=== PATIENT | female | born 1995 | race Caucasian/White ===

== ENCOUNTER 2017-01-11 17:22 | Emergency (ER) | payer OTHER ==
[2017-01-11] MEDS ORDERED: NORMAL SALINE 1000 ML 1,000 ML IV PRN (17:44)
[2017-01-11] MEDS ORDERED: ONDANSETRON 4 MG TAB.RAPDIS SL ONE (17:44)
--- NOTE | 2017-01-11 17:45 | ER Document Report ---
ED Medical Screen (RME) - General Chief Complaint: Vomiting Stated Complaint: VOMITING/WEAKNESS Time Seen by Provider: 01/11/17 17:44 Mode of Arrival: Ambulatory Information source: Patient TRAVEL OUTSIDE OF THE [place] IN LAST 30 DAYS: No - HPI Patient complains to provider of: Nausea and vomiting Onset: This morning Onset/Duration: Persistent Quality of pain: Achy, Cramping Severity: Mild Associated Symptoms: Nausea, Vomiting Exacerbated by: Denies Relieved by: Denies Notes: 01/11/17 17:45 Patient is a 21-year-old female who presents to the emergency room complaining of nausea and vomiting with epigastric abdominal pain that started around 7:00 this morning, she denies any sick contacts, no fevers, denies being - Related Data Allergies/Adverse Reactions: No Known Allergies Allergy (Verified 01/11/17 17:25) Past Medical History - Social History Chew tobacco use (# tins/day): No Frequency of alcohol use: None Drug Abuse: None Renal/ Medical History: Denies: Hx Peritoneal Dialysis Past Surgical History: Reports: Hx Cholecystectomy, Hx Oral Surgery - jaw Physical Exam - Vital signs Vitals: Temp Pulse Resp BP Pulse Ox 98 F 70 16 148/100 H 99 01/11/17 17:25 01/11/17 17:25 01/11/17 17:25 01/11/17 17:25 01/11/17 17:25 Course - Vital Signs Vital signs: Temp Pulse Resp BP Pulse Ox 98 F 66 18 137/95 H 98 01/11/17 17:25 01/11/17 17:41 01/11/17 17:41 01/11/17 17:41 01/11/17 17:41
[2017-01-11 18:53] LABS: HEMATOCRIT 43.1 % (36.0-47.0); HEMOGLOBIN 14.5 g/dL (12.0-15.5); HGB HCT DIFFERENCE 0.4; MEAN CORPUSCULAR HEMOGLOBIN 29.3 pg (27.0-33.4); MEAN CORPUSCULAR HGB CONC 33.6 g/dL (32.0-36.0); MEAN CORPUSCULAR VOLUME 87 fl (80-97); RED BLOOD COUNT 4.94 10^6/uL (3.72-5.28); RED CELL DISTRIBUTION WIDTH 13.2 % (11.5-14.0); WHITE BLOOD COUNT 10.6 10^3/uL (4.0-10.5)
[2017-01-11 19:10] LABS: ALANINE AMINOTRANSFERASE 23 U/L (5-35); ALBUMIN 4.9 g/dL (3.7-5.6); ALKALINE PHOSPHATASE 94 U/L (50-135); ANION GAP 18 (5-19); ASPARTATE AMINO TRANSFERASE 26 U/L (5-30); BILIRUBIN,DIRECT 0.4 mg/dL (0.0-0.4); BILIRUBIN,TOTAL 0.8 mg/dL (0.2-1.3); BLOOD UREA NITROGEN 9 mg/dL (7-20); CALCIUM 10.6 mg/dL (8.4-10.2); CARBON DIOXIDE 17 mmol/L (22-30); CHLORIDE 106 mmol/L (98-107); CREATININE RESULT 0.65 mg/dL (0.52-1.25); GLUCOSE 163 mg/dL (75-110); LIPASE 65.5 U/L (23-300); POTASSIUM 4.6 mmol/L (3.6-5.0); SODIUM 140.9 mmol/L (137-145); TOTAL PROTEIN 8.3 g/dL (6.3-8.2)
[2017-01-11 19:23] LABS: BASOPHILS % (MANUAL) 0 % (0-2); EOSINOPHILS % (MANUAL) 0 % (0-6); LYMPHOCYTES % (MANUAL) 7 % (13-45); TOTAL CELLS COUNTED 100
[2017-01-11] MEDS ORDERED: NORMAL SALINE 1000 ML 1,000 ML IV ONE (19:23)
[2017-01-11 19:24] LABS: RBC MORPHOLOGY COMMENT NORMO-CYTIC/CHROMIC
[2017-01-11 20:04] LABS: APPEARANCE,URINE SLIGHTLY-CLOUDY; BILIRUBIN,URINE NEGATIVE (NEGATIVE); GLUCOSE, URINE 50 mg/dL (NEGATIVE); KETONES,URINE 80 mg/dL (NEGATIVE); LEUKOCYTE ESTERASE,URINE NEGATIVE (NEGATIVE); NITRITE,URINE NEGATIVE (NEGATIVE); PROTEIN,URINE 100 mg/dL (NEGATIVE); URINE SPECIFIC GRAVITY 1.028; UROBILINOGEN,URINE NEGATIVE mg/dL (<2.0)
[2017-01-11] MEDS ORDERED: DIPHENHYDRAMINE HCL 50 MG/ML VIAL IV ONE (20:22)
[2017-01-11] MEDS ORDERED: PROCHLORPERAZINE EDISYLATE INJ 10 MG/2 ML VIAL IV ONE (20:22)
[2017-01-11] MEDS ORDERED: ONDANSETRON ODT 4 MG TAB (6 TAB/DSPK) PO PRN (20:51)
--- NOTE | 2017-01-11 20:51 | ER Document Report ---
ED General - General Chief Complaint: Vomiting Stated Complaint: VOMITING/WEAKNESS Time Seen by Provider: 01/11/17 17:44 Mode of Arrival: Ambulatory Notes: Patient is a 21-year-old female without past medical history who presents with 12 hours of epigastric abdominal pain and vomiting. States that she woke up this morning with a sensation of nausea and has had multiple episodes of vomiting since that time. States after several episodes of vomiting she developed a dull, wall aching pain in her epigastrium. Nothing improves or worsens her symptoms. States she has had similar symptoms in the past secondary to anxiety but is uncertain if this is the cause today. She has not seen her primary care doctor regarding today's concerns. Notes that she continues to have bowel movements and passing flatus without difficulty. She does have a surgical history of a cholecystectomy. TRAVEL OUTSIDE OF THE [place] IN LAST 30 DAYS: No - Related Data Allergies/Adverse Reactions: No Known Allergies Allergy (Verified 01/11/17 17:25) Past Medical History - General Information source: Patient - Social History Smoking Status: Never Smoker Chew tobacco use (# tins/day): No Frequency of alcohol use: None Drug Abuse: None Lives with: Spouse/Significant other Family History: Reviewed & Not Pertinent Patient has suicidal ideation: No Patient has homicidal ideation: No Renal/ Medical History: Denies: Hx Peritoneal Dialysis Past Surgical History: Reports: Hx Cholecystectomy, Hx Oral Surgery - jaw Review of Systems - Review of Systems Notes: Constitutional: Negative for fever. HENT: Negative for sore throat. Eyes: Negative for visual changes. Cardiovascular: Negative for chest pain. Respiratory: Negative for shortness of breath. Gastrointestinal: Positive for abdominal pain, vomiting. Negative for diarrhea Genitourinary: Negative for dysuria. Musculoskeletal: Negative for back pain. Skin: Negative for rash. Neurological: Negative for headaches, weakness or numbness. 10 point ROS negative except as marked above and in HPI. Physical Exam - Vital signs Vitals: Temp Pulse Resp BP Pulse Ox 98 F 70 16 148/100 H 99 01/11/17 17:25 01/11/17 17:25 01/11/17 17:25 01/11/17 17:25 01/11/17 17:25 Interpretation: Hypertensive Notes: PHYSICAL EXAMINATION: GENERAL: Well-appearing, well-nourished and in no acute distress. HEAD: Atraumatic, normocephalic. EYES: Pupils equal round and reactive to light, extraocular movements intact, sclera anicteric, conjunctiva are normal. ENT: nares patent, oropharynx clear without exudates. Moderately dry mucous membranes. NECK: Normal range of motion, supple without lymphadenopathy LUNGS: Breath sounds clear to auscultation bilaterally and equal. No wheezes rales or rhonchi. HEART: Regular rate and rhythm without murmurs ABDOMEN: Soft, nontender, normoactive bowel sounds. No guarding, no rebound. No masses appreciated. EXTREMITIES: Normal range of motion, no pitting or edema. No cyanosis. NEUROLOGICAL: No focal neurological deficits. Moves all extremities spontaneously and on command. PSYCH: Normal mood, normal affect. SKIN: Warm, Dry, normal turgor, no rashes or lesions noted. Course - Re-evaluation Re-evalutation: 01/11/17 20:49 Presentation of an overall well-appearing patient in no acute distress with complaints of nausea, vomiting. Patient has no abdominal tenderness on exam and specifically no tenderness in the RLQ, LLQ, RUQ. Overall well hydrated on exam. Able to tolerate oral intake here in the emergency department. Low clinical suspicion for any acute life-threatening etiology based on exam and history including acute cholecystitis, SBO, appendicitis, nephrolithiasis, or pylonephritis. CMP without evidence of acute hepatitis or significant dehydration. The exact etiology of this episodic vomiting is unclear at this time but could be related to either a viral or food bourne illness vs gastritis. At this time will discharge with return precautions and follow-up recommendations. Verbal discharge instructions given a the bedside and opportunity for questions given. Medication warnings reviewed. Patient is in agreement with this plan and has verbalized understanding of return precautions and the need for primary care follow-up in the next 24-72 hours. - Vital Signs Vital signs: Temp Pulse Resp BP Pulse Ox 99.0 F 104 H 16 139/90 H 97 01/11/17 20:58 01/11/17 20:58 01/11/17 20:58 01/11/17 20:58 01/11/17 20:58 - Laboratory Result Diagrams: 01/11/17 18:20 01/11/17 18:20 Laboratory results interpreted by me: 05/27/17 05/27/17 05/27/17 18:20 18:20 19:30 WBC 10.6 H Seg Neuts % (Manual) 92 H Lymphocytes % (Manual) 7 L Monocytes % (Manual) 1 L Abs Neuts (Manual) 9.8 H Carbon Dioxide 17 L Glucose 163 H Calcium 10.6 H Total Protein 8.3 H Urine Protein 100 H Urine Glucose (UA) 50 H Urine Ketones 80 H Urine Ascorbic Acid 40 H Discharge - Discharge Clinical Impression: Dehydration Nausea and vomiting Qualifiers: Vomiting type: unspecified Vomiting Intractability: non-intractable Qualified Code(s): R11.2 - Nausea with vomiting, unspecified Condition: Good Disposition: HOME, SELF-CARE Additional Instructions: You have been seen in the Emergency Department (ED) today for nausea and vomiting. Your work up today has not shown a clear cause for your symptoms. You have been prescribed Zofran; please use as prescribed as needed for your nausea. Follow up with your doctor as soon as possible regarding today's emergent visit and your symptoms of nausea. Return to the Emergency Department (ED) if you develop abdominal pain, bloody vomiting, bloody diarrhea, if you are unable to tolerate fluids due to vomiting , or if you develop other symptoms that concern you.
[2017-01-11 21:00] VITALS: BP 139/90
== END 2017-01-11 21:25 | disposition home or self-care (01) ==
LOC: ER 17:22
DX: E86.0 Dehydration (principal); R11.2 Nausea with vomiting, unspecified; R10.13 Epigastric pain; R53.1 Weakness; Z90.49 Acquired absence of other specified parts of digestive tract
CPT/HCPCS: 99284; 96361; 96374; 96375; 36415; 87086; 83690; 84703; 85025; 87088; 80053; 81001; J1200; S0119; J0780; J7030